=== PATIENT | female | born 1980 | race Caucasian/White ===

== ENCOUNTER 2017-08-09 13:25 | Emergency (ER) | payer MEDICAID, SELFPAY ==
[~2017-08-09] VITALS: Ht 165.1 cm; Wt 81.6 kg
[2017-08-09] MEDS ORDERED: SODIUM CHLORIDE 0.9% 1,000 ML IV ONE (13:47)
[2017-08-09] MEDS ORDERED: KETOROLAC 30 MG/1 ML IVPush ONE (14:00)
[2017-08-09] MEDS ORDERED: SODIUM CHLORIDE 0.9% 1,000ML IVBOLUS ONE (14:00)
[2017-08-09] MEDS ORDERED: SODIUM CHLORIDE FLUSH 10ML SYR IVF ONE (14:00)
[2017-08-09] MEDS ORDERED: ONDANSETRON 2MG/ML, 2ML IVPush ONE (14:00)
[2017-08-09 14:15] LABS: ASPARTATE AMINO TRANSFERASE 18 U/L (15-37); BLOOD UREA NITROGEN 13 mg/dL (7-18)
[2017-08-09] MEDS ORDERED: ONDANSETRON 2MG/ML, 2ML ONE (14:15)
[2017-08-09] MEDS ORDERED: KETOROLAC 30 MG/1 ML ONE (14:15)
[2017-08-09 14:19] LABS: HEMATOCRIT 43.3 % (34.6-47.8); HEMOGLOBIN 14.4 g/dL (11.7-16.4)
[2017-08-09 15:19] VITALS: BP 108/57
== END 2017-08-09 15:25 | disposition home or self-care (01) ==
LOC: ED 15:18
DX: N20.0 Calculus of kidney (principal); Z90.49 Acquired absence of other specified parts of digestive tract
CPT/HCPCS: 36415; 74176; 80053; 81001; 83690; 84703; 85025; 87086; 93005; 96361; 96374; 96375; 99285; J1885; J2405; J7030

== ENCOUNTER 2017-08-27 15:02 | Emergency (ER) | payer MEDICAID ==
[~2017-08-27] VITALS: Ht 165.1 cm; Wt 80.0 kg
[2017-08-27] MEDS ORDERED: SODIUM CHLORIDE 0.9% 1,000 ML IV ONE (15:46)
[2017-08-27] MEDS ORDERED: ONDANSETRON 2MG/ML, 2ML IVPush ONE (16:00)
[2017-08-27] MEDS ORDERED: SODIUM CHLORIDE FLUSH 10ML SYR IVF ONE (16:00)
[2017-08-27] MEDS ORDERED: KETOROLAC 30 MG/1 ML IVPush ONE (16:00)
[2017-08-27] MEDS ORDERED: HYDROmorphone 1 MG/ML, 1ML IVPush PRN (16:00)
[2017-08-27 16:04] LABS: HEMATOCRIT 41.5 % (34.6-47.8); HEMOGLOBIN 13.8 g/dL (11.7-16.4); WHITE BLOOD COUNT 14.3 x10^3/uL (3.4-10)
[2017-08-27] MEDS ORDERED: ONDANSETRON 2MG/ML, 2ML ONE ×2 (16:14→17:32)
[2017-08-27] MEDS ORDERED: KETOROLAC 30 MG/1 ML ONE (16:14)
[2017-08-27] MEDS ORDERED: HYDROmorphone 1 MG/ML, 1ML ONE (16:14)
[2017-08-27 16:15] LABS: ASPARTATE AMINO TRANSFERASE 11 U/L (15-37); BLOOD UREA NITROGEN 8 mg/dL (7-18)
[2017-08-27 16:33] LABS: PATH.CAST-FLAG NOT PRESENT; SPERM-FLAG NOT PRESENT; SRC-FLAG NOT PRESENT; XTAL-FLAG NOT PRESENT; YLC-FLAG NOT PRESENT
[2017-08-27] MEDS ORDERED: MAALOX/HYOSCYAMINE/LIDOCAINE 45 ML BTL ONE (17:02)
[2017-08-27] MEDS ORDERED: MAALOX/HYOSCYAMINE/LIDOCAINE 45 ML BTL PO ONE (17:30)
[2017-08-27 17:37] VITALS: BP 121/70
== END 2017-08-27 18:06 | disposition home or self-care (01) ==
LOC: ED 17:17
DX: N23 Unspecified renal colic (principal); N20.1 Calculus of ureter; Z90.49 Acquired absence of other specified parts of digestive tract
CPT/HCPCS: 36415; 74176; 80053; 81001; 85025; 93005; 96361; 96374; 96375; 99285; J1170; J1885; J2405; J7030